=== PATIENT | male | born 1940 | race Caucasian/White ===

== ENCOUNTER 2019-12-04 10:04 | Inpatient (IN) | payer OTHER, MEDICARE ==
--- NOTE | 2019-12-04 11:07 | RAD REPORT ---
EXAM DESCRIPTION: CT - Head Brain Wo Cont - 12/04/2019 10:58 am CLINICAL HISTORY: Confused;Weakness Headache, drowsiness COMPARISON: No comparisons TECHNIQUE: All CT scans are performed using dose optimization technique as appropriate and may inclu de automated exposure control or mA/KV adjustment according to patient size. FINDINGS: No intracranial hemorrhage, hydrocephalus or extra-axial fluid collection.Mild generalized brain atrophy is noted.No areas of brain edema or evidence of midline shift. The paranasal sinuses and mastoids are clear. The calvarium is intact. IMPRESSION: No acute intracranial abnormality.
--- NOTE | 2019-12-04 11:10 | RAD REPORT ---
EXAM DESCRIPTION: RAD - Chest Pa And Lat (2 Views) - 12/04/2019 10:53 am CLINICAL HISTORY: DYSPNEA Chest pain. COMPARISON: No comparisons FINDINGS: Moderate left pleural effusion is seen. Underlying atelectasis or infiltrate is possible. Vague opacity in the right inferior lung may represent additional area of atelectasis or infiltrate. Heart size is enlarged. No displaced fractures.
--- NOTE | 2019-12-04 11:35 | EKG ---
Test Date: 2019-12-04 Test Time: 11:09:44 Animal Humane Agent Supervisor: LYNN MEASUREMENT RESULTS: Intervals: Rate: 98 ID: [id number] QRSD: 90 QT: 320 QTc: 408 [place]: P: 25 ID: [id number] QRS: -7 T: -10 INTERPRETIVE STATEMENTS: Sinus rhythm with 1st degree AV block Low voltage QRS Inferior infarct, age undetermined Abnormal ECG No previous ECG available for comparison Electronically Signed On 12-04-19 11:34:33 CDT by Zana Mcfarland
[2019-12-04 11:36] LABS: Protime INR 1.05
[2019-12-04 11:43] LABS: Absolute Lymphocytes (CBC) 1.5 K/uL (0.7-4.9); Basophils % 0.7 % (0-1.3); Hematocrit 43.2 % (39.6-49.0); Lymphocytes % 14.9 % (15.3-44.8); RBC Red Blood Cell Count 5.07 M/uL (4.33-5.43)
[2019-12-04 11:51] LABS: ALT/SGPT 25 U/L (12-78); AST/SGOT 20 U/L (15-37); Albumin 3.3 g/dL (3.4-5.0); Alkaline Phosphatase 73 U/L (45-117); BUN Blood Urea Nitrogen 21 mg/dL (7-18); Bicarbonate 30 mmol/L (21-32); Bilirubin Direct 0.1 mg/dL (0-0.2); Bilirubin Total 0.4 mg/dL (0.2-1.0); Glucose Level 125 mg/dL (74-106); Magnesium 1.6 mg/dL (1.8-2.4); NT PRO-BNP 53 pg/mL (<450); Potassium 3.7 mmol/L (3.5-5.1); Protein, Total 7.7 g/dL (6.4-8.2); Sodium Level 146 mmol/L (136-145); Troponin (Emerg Dept Use Only) < 0.02 ng/mL (0.0-0.045)
[2019-12-04] MEDS ORDERED: NA CHLORIDE 0.9% 1,000 ML ONE (12:28)
--- NOTE | 2019-12-04 12:33 | RAD REPORT ---
EXAM DESCRIPTION: CT - Chest For Pe Angio - 12/04/2019 12:20 pm CLINICAL HISTORY: Chest pain. DYSPNEA COMPARISON: No comparisons TECHNIQUE: CT angiogram of the pulmonary arteries was performed with MIP. All CT scans are performed using dose optimization technique as appropriate and may include automated exposure control or mA/KV adjustment according to patient size. FINDINGS: No evidence of pulmonary thromboembolism. No acute aortic finding demonstrated. Multiple varying size pulmonary nodules are present bilaterally compatible with metastatic disease. I n the right upper lobe measuring 17 mm (image 48/128, in the left upper lobe anteriorly measuring 13 mm (image 41/128) in the right lower lobe measuring 22 mm (image 69/128). Loculated left pleural effu kerline is seen with areas of irregular pleural nodularity likely metastatic in etiology. Multiple destructive bone lesions are present involving the left scapula with significant destruction and muscle edema measuring 34 x 27 mm. Additional left-sided rib lesions including a large destructi ve left left third rib mass measuring 47 x 17 mm. Aggressive bone lesion with destructive changes inv olving medial right aspect of the clavicle measuring 17 mm. Vertebral body lesion affecting the T12 v ertebral body measuring 24 mm. Numerous small hepatic masses are partially visualize compatible with liver metastasis. IMPRESSION: No evidence of pulmonary thromboembolism. 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
[2019-12-04] MEDS ORDERED: Magnesium Sulfate 2gm IVPB 0 G/0 ML BAG IV ONE (13:24)
[2019-12-04] MEDS ORDERED: MAGNESIUM SULFATE 1 gm IVPB 1 GM/100 ML BAG IV ONE (13:26)
--- NOTE | 2019-12-04 13:29 | ER ---
Nurse's Notes [facility] Name: Pawel Briceno Age: 79 yrs Sex: Male : 1940 Arrival Date: 12/04/2019 Time: 10:08 Bed 14 Private MD: Clint Mao R Diagnosis: Pleural effusion, not elsewhere classified;Dehydration;Hypercalcemia;Advanced intrathoracic malignancy Presentation: 12/03 10:22 Chief complaint: Spouse and/or significant other states: L shoulder pain x 1 year, SOB ph that began 3 days ago, also reports decreased appetite, denies cough or fever. Coronavirus screen: Patient denies a cough. Patient reports shortness of breath or difficulty breathing. Patient denies measured and/or subjective temperature greater than 100.4F prior to today's visit. Patient denies travel on a cruise ship or to a country the [facility] currently lists as an affected area. Patient denies contact with known and/or suspected case of COVID-19. Ebola Screen: No symptoms or risks identified at this time. Initial Sepsis Screen: Does the patient meet any 2 criteria? No. Patient's initial sepsis screen is negative. Does the patient have a suspected source of infection? No. Patient's initial sepsis screen is negative. Risk Assessment: Do you want to hurt yourself or someone else? Patient reports no desire to harm self or others. Onset of symptoms was December 04, 2019. 10:22 Method Of Arrival: Wheelchair ph 10:22 Acuity: EBONY 3 ph Triage Assessment: 15:32 Respiratory: the patient has moderate shortness of breath. Historical: - Allergies: 10:31 No Known Allergies; ph - Home Meds: 10:31 pioglitazone 15 mg oral tab 1 tab once daily [Active]; metformin 500 mg Oral tab 1 tab ph three times a day [Active]; diltiazem HCl 300 mg Oral cpER 1 cap once daily [Active]; lisinopril 10 mg Oral tab 1 tab once daily [Active]; pravastatin 40 mg oral tab 1 tab once daily [Active]; levothyroxine 50 mcg tab 1 tab once daily [Active]; glimepiride 1 mg Oral tab 1 tab twice a day [Active]; donepezil 10 mg oral tab 1 tab once daily [Active]; Fish Oil oral oral [Active]; aspirin 81 mg Oral chew 1 tab once daily [Active]; multivitamin with minerals oral oral [Active]; - PMHx: 10:31 Dementia; Hypertension; Hyperlipidemia; Hypothyroidism; Diabetes - NIDDM; ph - Immunization history:: Adult Immunizations unknown. - Social history:: Smoking status: Patient/guardian denies using tobacco, the patient reports quitting approximately 30 years ago. Screenin:52 Abuse screen: Denies threats or abuse. Nutritional screening: No deficits noted. Tuberculosis screening: No symptoms or risk factors identified. Fall Risk None identified. Assessment: 10:20 General: Appears in no apparent distress. Behavior is calm, cooperative. Pain: Denies pain. Neuro: Level of Consciousness is awake, alert, Oriented to person. Cardiovascular: Heart tones S1 S2 present Capillary refill < 3 seconds Patient's skin is warm and dry. Rhythm is sinus rhythm. Respiratory: Reports shortness of breath at rest Airway is patent Respiratory effort is even, unlabored, Respiratory pattern is regular, symmetrical, 11:20 Reassessment: Patient and/or family updated on plan of care and expected duration. Pain ah level reassessed. Awaiting results. at bedside. No needs voiced at this time. 12:30 Reassessment: NS Bolus hung at this time. No other needs voiced. remains at bedside. 12:59 Reassessment: Cheri GUDINO in room with Pt discussing results. 13:30 Reassessment: Magnesium Sulfte hung at this time. at bedside. No needs voiced at this time. 14:10 Reassessment: Assisted Pt stand at bedside and use urinal and put on a gown. Pt tolerated well. Pt voided 250ml or yellow urine. Explained to Pt awaiting room assignment. 15:08 Reassessment: Report given to TJ on 2nd floor. 15:32 Reassessment: Pt taken up stairs via with tech. Vital Signs: 10:22 BP 117 / 67; Pulse 107; Resp 20; Temp 98.5; Pulse Ox 93% on R/A; Weight 99.79 kg; ph Height 5 ft. 11 in. (180.34 cm); 10:30 BP 128 / 57; Pulse 77; Resp 19; Pulse Ox 92% ; 12:00 BP 128 / 64; Pulse 76; Resp 19; Pulse Ox 92% ; ah 13:30 BP 125 / 71; Pulse 75; Resp 19; Pulse Ox 93% ; ah 14:30 BP 131 / 58; Pulse 74; Resp 22; Pulse Ox 92% ; ah 10:22 Body Mass Index 30.68 (99.79 kg, 180.34 cm) ph ED Course: 10:08 Patient arrived in ED. mr 10:08 Clint Mao MD is Private Physician. mr 10:24 Triage completed. ph 10:29 Cheri Campbell FNP-C [facility]. kb 10:29 Winston Petit MD is Attending Physician. kb 10:52 Chest Pa And Lat (2 Views) XRAY In Process Unspecified. EDMS 10:58 CT Head Brain wo Cont In Process Unspecified. EDMS 11:04 Olya Renee, RN is Primary Nurse. ah 11:21 EKG done, by treatment technician. reviewed by Cheri SOLORIO. at1 12:22 CT Chest For PE Angio In Process Unspecified. EDMS 13:27 Dejon Curry DO is Hospitalizing Provider. kb 14:55 Patient has correct armband on for positive identification. Placed in gown. Bed in low ah position. Call light in reach. Side rails up X2. Adult w/ patient. color television console monitor on. Pulse ox on. NIBP on. 15:30 No provider procedures requiring assistance completed. Patient admitted, IV remains in ah place. Administered Medications: 12:32 Drug: NS 0.9% 1000 ml Route: IV; Rate: 1000 ml; Site: left antecubital; 13:30 Follow up: Response: No adverse reaction; IV Status: Completed infusion; IV Intake: ah 1000ml 13:26 Drug: Magnesium Sulfate 1 grams Route: IVPB; Infused Over: 30 mins; Site: left antecubital; 14:00 Follow up: Response: No adverse reaction; IV Status: Completed infusion ah Intake: 13:30 IV: 1000ml; Total: 1000ml. Outcome: 13:28 Decision to Hospitalize by Provider. kb 15:28 Admitted to Med/surg accompanied by tech, via wheelchair, room 208, with chart, Report ah called to NICHOLE HENRIQUEZ 15:28 Condition: stable 15:28 Instructed on the need for admit. 15:33 Patient left the ED. Signatures: Dispatcher [employer] EDCheri Dietz FNP-C CAPITAL MARKETS SPECIALIST-Ckb Lynda Jones mr Craig, Madhavi, infrastructure security architect EKG Tat1 Aishwarya Reardon, RN RN Olya Hale RN RN
--- NOTE | 2019-12-04 13:30 | EDPHYS ---
Physician Documentation [facility] Name: Pawel Briceno Age: 79 yrs Sex: Male : 1940 Arrival Date: 12/04/2019 Time: 10:08 Bed 14 Private MD: Clint Mao R ED Physician Winston Petit HPI: 12/03 13:23 This 79 yrs old Male presents to ER via Wheelchair with complaints of kb Breathing Difficulty. 13:23 The patient has shortness of breath at rest. Onset: The symptoms/episode began/occurred kb 3 week(s) ago. Duration: The symptoms are continuous. The patient's shortness of breath is aggravated by exertion, is alleviated by nothing. Associated signs and symptoms: Pertinent positives: weakness, fatigue, decreased appetite. Severity of symptoms: At their worst the symptoms were moderate in the emergency department the symptoms are unchanged. The patient has not experienced similar symptoms in the past. The patient has not recently seen a physician. 13:25 reports pt has been short of breath, weak, more tired than normal and hasn't been kb eating much over the last 3 days. States pt has been getting confused on where things go in the house and has been losing things. Pt has history of dementia, but wants to make sure he didn't have a mini stroke, no neuro deficits. Pt A\T\Ox4 at this time. states they are concerned about a clot in the lung due to the shortness of breath. Also reports pt has had pain to left shoulder for over a year. . Historical: - Allergies: 10:31 No Known Allergies; ph - Home Meds: 10:31 pioglitazone 15 mg oral tab 1 tab once daily [Active]; metformin 500 mg Oral tab 1 tab ph three times a day [Active]; diltiazem HCl 300 mg Oral cpER 1 cap once daily [Active]; lisinopril 10 mg Oral tab 1 tab once daily [Active]; pravastatin 40 mg oral tab 1 tab once daily [Active]; levothyroxine 50 mcg tab 1 tab once daily [Active]; glimepiride 1 mg Oral tab 1 tab twice a day [Active]; donepezil 10 mg oral tab 1 tab once daily [Active]; Fish Oil oral oral [Active]; aspirin 81 mg Oral chew 1 tab once daily [Active]; multivitamin with minerals oral oral [Active]; - PMHx: 10:31 Dementia; Hypertension; Hyperlipidemia; Hypothyroidism; Diabetes - NIDDM; ph - Immunization history:: Adult Immunizations unknown. - Social history:: Smoking status: Patient/guardian denies using tobacco, the patient reports quitting approximately 30 years ago. ROS: 12:46 Constitutional: Negative for fever, chills, and weight loss, ENT: Negative for injury, kb pain, and discharge, Neck: Negative for injury, pain, and swelling, Cardiovascular: Negative for chest pain, palpitations, and edema, Back: Negative for injury and pain, MS/Extremity: Negative for injury and deformity, Skin: Negative for injury, rash, and discoloration. 12:46 Respiratory: Positive for shortness of breath, Negative for cough, dyspnea on exertion, hemoptysis, orthopnea, pleurisy, sputum production, wheezing. 12:46 Abdomen/GI: Positive for anorexia. 12:46 Neuro: Positive for confusion. Exam: 12:45 Constitutional: This is a well developed, well nourished patient who is awake, alert, kb and in no acute distress. Head/Face: Normocephalic, atraumatic. ENT: Nares patent. No nasal discharge, no septal abnormalities noted. Tympanic membranes are normal and external auditory canals are clear. Oropharynx with no redness, swelling, or masses, exudates, or evidence of obstruction, uvula midline. Mucous membranes moist. Neck: Trachea midline, no thyromegaly or masses palpated, and no cervical lymphadenopathy. Supple, full range of motion without nuchal rigidity, or vertebral point tenderness. No Meningismus. Chest/axilla: Normal chest wall appearance and motion. Nontender with no deformity. No lesions are appreciated. Cardiovascular: Regular rate and rhythm with a normal S1 and S2. No gallops, murmurs, or rubs. Normal PMI, no JVD. No pulse deficits. Respiratory: Lungs have equal breath sounds bilaterally, clear to auscultation and percussion. No rales, rhonchi or wheezes noted. No increased work of breathing, no retractions or nasal flaring. Abdomen/GI: Soft, non-tender, with normal bowel sounds. No distension or tympany. No guarding or rebound. No evidence of tenderness throughout. Skin: Warm, dry with normal turgor. Normal color with no rashes, no lesions, and no evidence of cellulitis. MS/ Extremity: Pulses equal, no cyanosis. Neurovascular intact. Full, normal range of motion. Neuro: Awake and alert, GCS 15, oriented to person, place, time, and situation. Cranial nerves II-XII grossly intact. Motor strength 5/5 in all extremities. Sensory grossly intact. Cerebellar exam normal. Normal gait. 12:45 ECG was reviewed by the Attending Physician. Vital Signs: 10:22 BP 117 / 67; Pulse 107; Resp 20; Temp 98.5; Pulse Ox 93% on R/A; Weight 99.79 kg; ph Height 5 ft. 11 in. (180.34 cm); 10:30 BP 128 / 57; Pulse 77; Resp 19; Pulse Ox 92% ; ah 12:00 BP 128 / 64; Pulse 76; Resp 19; Pulse Ox 92% ; ah 13:30 BP 125 / 71; Pulse 75; Resp 19; Pulse Ox 93% ; ah 14:30 BP 131 / 58; Pulse 74; Resp 22; Pulse Ox 92% ; ah 10:22 Body Mass Index 30.68 (99.79 kg, 180.34 cm) ph MDM: 10:29 Patient medically screened. kb 12:45 Data reviewed: vital signs, nurses notes. Data interpreted: Pulse oximetry: on room air kb is 93 %. Interpretation: acceptable. 13:21 Counseling: I had a detailed discussion with the patient and/or guardian regarding: the kb historical points, exam findings, and any diagnostic results supporting the discharge/admit diagnosis, lab results, radiology results, the need for further work-up and treatment in the hospital. Physician consultation: Clint Mao MD was contacted at 13:15, regarding admission, patient's condition, Dr Mao is not taking pt's at this time. Asked to admit to the hospitalist. 13:22 Physician consultation: Dejon Curry DO was contacted at 13:20, regarding admission, kb to the telemetry unit. patient's condition, and will see patient in ED, shortly. 12/03 10:36 Order name: Basic Metabolic Panel; Complete Time: 11:55 kb 12/03 10:36 Order name: CBC with Diff; Complete Time: 11:55 kb 12/03 10:36 Order name: LFT's; Complete Time: 11:55 kb 12/03 10:36 Order name: Magnesium; Complete Time: 11:55 kb 12/03 10:36 Order name: NT PRO-BNP; Complete Time: 11:55 kb 12/03 10:36 Order name: PT-INR; Complete Time: 11:39 kb 12/03 10:30 Order name: Chest Pa And Lat (2 Views) XRAY; Complete Time: 11:22 kb 12/03 10:36 Order name: Troponin (emerg Dept Use Only); Complete Time: 11:55 kb 12/03 10:36 Order name: EKG; Complete Time: 10:37 kb 12/03 10:36 Order name: Cardiac monitoring; Complete Time: 11:21 kb 12/03 10:36 Order name: CT Head Brain wo Cont; Complete Time: 11:22 kb 12/03 11:56 Order name: CT Chest For PE Angio; Complete Time: 12:42 kb 12/03 10:36 Order name: EKG - Nurse/Tech; Complete Time: 11:21 kb 12/03 10:36 Order name: IV Saline Lock; Complete Time: 11:21 kb 12/03 10:36 Order name: Labs collected and sent; Complete Time: 11:21 kb 12/03 10:36 Order name: O2 Per Protocol; Complete Time: 11:21 kb 12/03 10:36 Order name: O2 Sat Monitoring; Complete Time: 11:21 kb EC:45 Rate is 98 beats/min. Rhythm is regular. QRS Lynn is Normal. OR interval is prolonged kb at 214 msec. QRS interval is normal at 90 msec. QT interval is normal at 320 msec. Administered Medications: 12:32 Drug: NS 0.9% 1000 ml Route: IV; Rate: 1000 ml; Site: left antecubital; 13:30 Follow up: Response: No adverse reaction; IV Status: Completed infusion; IV Intake: 1000ml 13:26 Drug: Magnesium Sulfate 1 grams Route: IVPB; Infused Over: 30 mins; Site: left antecubital; 14:00 Follow up: Response: No adverse reaction; IV Status: Completed infusion Disposition: 19:09 Co-signature as Attending Physician, Winston Petit MD Available for consultation in ps1 the ED. . Disposition: 12/04/19 13:28 Hospitalization ordered by Dejon Curry for Inpatient Admission. Preliminary diagnosis are Pleural effusion, not elsewhere classified, Dehydration, Hypercalcemia, Advanced intrathoracic malignancy. - Bed requested for Telemetry/MedSurg (Inpatient). - Status is Inpatient Admission. ah - Condition is Stable. - Problem is new. - Symptoms are unchanged. Signatures: Dispatcher [employer] EDMS AdrianGulshanCheri, DENTAL INTERNSHIP-C DENTAL INTERNSHIP-Ckb Sarbjit Karolina Aishwarya Quiroga RN RN Winston Petit MD MD [facility] Olya Renee RN RN Corrections: (The following items were deleted from the chart) 13:30 13:28 Hospitalization Ordered by Dejon Curry DO for Inpatient Admission. Preliminary kb diagnosis is Pleural effusion, not elsewhere classified; Dehydration; Hypercalcemia. Bed requested for Telemetry/MedSurg (Inpatient). Status is Inpatient Admission. Condition is Stable. Problem is new. Symptoms are unchanged. kb 14:47 13:30 12/04/2019 13:28 Hospitalization Ordered by Dejon Curry DO for Inpatient bd Admission. Preliminary diagnosis is Pleural effusion, not elsewhere classified; Dehydration; Hypercalcemia; Advanced intrathoracic malignancy. Bed requested for Telemetry/MedSurg (Inpatient). Status is Inpatient Admission. Condition is Stable. Problem is new. Symptoms are unchanged. kb 15:33 14:47 12/04/2019 13:28 Hospitalization Ordered by Dejon Curry DO for Inpatient ah Admission. Preliminary diagnosis is Pleural effusion, not elsewhere classified; Dehydration; Hypercalcemia; Advanced intrathoracic malignancy. Bed requested for Telemetry/MedSurg (Inpatient). Status is Inpatient Admission. Condition is Stable. Problem is new. Symptoms are unchanged. bd
[2019-12-04 15:49] VITALS: BMI 30.7
--- NOTE | 2019-12-04 15:52 | P.HP ---
Certification for Inpatient Patient admitted to: Observation With expected LOS: <2 Midnights Patient will require the following post-hospital care: None Practitioner: I am a practitioner with admitting privileges, knowledge of patient current condition, hospital course, and medical plan of care. Services: Services provided to patient in accordance with Admission requirements found in Title 42 Section 412.3 of the Code of Federal Regulations Patient History Date of Service: 12/04/19 Primary Care Provider: Dr. Mao; Dr. Drummond-Neurology; Dr. Bruce-Endocrine Reason for admission: Shortness of breath History of Present Illness: 79-year-old male with history of dementia, hypertension, hyperlipidemia, hypothyroidism and diabetes mellitus. Patient reports shortness of breath over the last several days. He also reported decrease appetite and nutrition. Patient denies any fever, chills, or chest pain. Patient reports left shoulder pain but this is been chronic. He denies any nausea, vomiting. Patient came to the ER for further evaluation. In the ER patient evaluated. CBC unremarkable. Sodium 146, potassium 3.7. BUN of 27, creatinine 1.5. GFR 45. Glucose 125. Magnesium 1.6. Troponin unremarkable. CT scan revealed no pulmonary embolism. Multiple varying size pulmonary nodules present bilateral compatible with metastatic disease. Multiple destructive bone lesions involving the left scapula with significant destruction and muscle edema noted as well. Additional left-sided rib lesions including Large destructive left 3rd rib mass noted. Aggressive bone lesion with destructive changes involving the medial right aspect of the clavicle. Vertebral body lesion also noted to the T12 vertebral body. Numerous small hepatic masses compatible with liver metastasis noted. Patient also found to have loculated left pleural effusion with areas of irregular nodularity likely metastatic. Patient was admitted for further evaluation and treatment. When I saw the patient in the ER. Patient appeared stable. 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 Lives at home. He is . - Family History Sister -: Cancer (Uterine cancer) Brother -: Cancer (Pancreatic cancer) - Social History Smoking Status: Former smoker Alcohol use: No CD- Drugs: No Caffeine use: No Place of Residence: Home Review of Systems General: Weakness, Malaise, As per HPI Eyes: Unremarkable ENT: Unremarkable Respiratory: As per HPI Cardiovascular: Unremarkable Gastrointestinal: Unremarkable Genitourinary: Unremarkable Musculoskeletal: Shoulder Pain, As per HPI Integumentary: Unremarkable Neurological: Unremarkable Lymphatics: Unremarkable Physical Examination - Physical Exam General: Alert, In no apparent distress, Oriented x3, Cooperative HEENT: Atraumatic, Normocephalic Neck: Supple Respiratory: Diminished (To the left base) Cardiovascular: Normal pulses, Regular rate/rhythm Gastrointestinal: Normal bowel sounds, Soft and benign, Non-distended, No tenderness, No masses, No rebound, No guarding Musculoskeletal: Other (Left shoulder pain. Rib pain the left side.) Integumentary: No tenderness/swelling, No erythema, No warmth, No cyanosis Neurological: Normal speech, Normal strength at 5/5 x4 extr, Normal tone, Normal affect - Studies Laboratory Data (last 24 hrs) 12/04/19 11:11: PT 12.4, INR 1.05 12/04/19 11:11: WBC 10.2, Hgb 14.1, Hct 43.2, Plt Count 350 12/04/19 11:11: Sodium 146 H, Potassium 3.7, BUN 21 H, Creatinine 1.51 H, Glucose 125 H, Magnesium 1.6 L, Total Bilirubin 0.4, AST 20, ALT 25, Alkaline Phosphatase 73 Assessment and Plan - Plan Impression: Shortness of breath with noted abnormal CT scan showing multiple pulmonary nodules bilateral compatible with metastatic disease and loculated left pleural effusion likely metastatic etiology Multiple destructive bone lesions involving the left scapula, left-sided rib lesions including a large destructive left 3rd rib mass and destructive changes to the right aspect of the clavicle and T12 vertebral body Hepatic masses likely liver metastasis Diabetes mellitus type 2 Hypertension Hyperlipidemia Hypothyroidism Dementia Plan: Shortness of breath with noted abnormal CT scan showing multiple pulmonary nodules bilateral compatible with metastatic disease and loculated left pleural effusion likely metastatic etiology: Patient will be admitted for further hunter luation. Will provide oxygen to maintain sats above 90%. Case discussed with pulmonology. Will plan for ultrasound-guided radiology assisted thoracentesis to further evaluate. This should help with pleural effusion as well. Patient will need further workup for likely stage IV lung cancer with metastasis. This will likely include Pulmonary, Oncology in the near future. Possible discharge tomorrow if well after thoracentesis. Multiple destructive bone lesions involving the left scapula, left-sided rib lesions including a large destructive left 3rd rib mass and destructive changes to the right aspect of the clavicle and T12 vertebral body: This was discussed in detail with the patient. Continue as above. Patient will need oncology evaluation once a diagnosis is made. Hepatic masses likely liver metastasis: Will need oncology evaluation once a diagnosis is made Diabetes mellitus type 2: Will provide Accu-Cheks and continue sliding scale Hypertension: Will need to restart home medication Hyperlipidemia: Restart home medication Hypothyroidism: Restart home medication Dementia: Restart home medication Discharge Plan: Home Plan to discharge in: 24 Hours - Advance Directives Does patient have a Living Will: No Does patient have a Durable POA for Healthcare: No - Code Status/Comfort Care Code Status Assessed: Yes (Patient is full code) Time Spent Managing Pts Care (In Minutes): 55
[2019-12-04] MEDS ORDERED: ACETAMINOPHEN 500 MG TAB PO PRN (15:53)
[2019-12-04] MEDS ORDERED: ONDANSETRON 4 MG/2 ML VIAL IV PRN (15:53)
[2019-12-04] MEDS: INSULIN -REGULAR HUMAN 50 UNIT/0.5 ML ML SQ SCH ×2 (15:58→20:49)
[2019-12-04] MEDS ORDERED: POTASSIUM 25 MEQ EFFERV TAB PO ONE (18:00)
[2019-12-04] MEDS ORDERED: POTASSIUM 25 MEQ EFFERV TAB ONE (18:08)
[2019-12-04] MEDS: DONEPEZIL HCL 5 MG TAB PO SCH (20:49)
[2019-12-04] MEDS: ATORVASTATIN 10 MG TAB PO SCH (20:49)
[2019-12-04] MEDS: HEPARIN 5000 UNIT/ML 1 ML VIAL SQ SCH (20:52)
[2019-12-05 05:36] LABS: Absolute Lymphocytes (CBC) 1.5 K/uL (0.7-4.9); Basophils % 0.7 % (0-1.3); Hematocrit 38.5 % (39.6-49.0); Lymphocytes % 19.7 % (15.3-44.8); MPV 8.8 fL (7.6-11.3); RBC Red Blood Cell Count 4.47 M/uL (4.33-5.43)
[2019-12-05 05:39] LABS: Protime INR 1.1
[2019-12-05 06:01] LABS: Albumin 2.7 g/dL (3.4-5.0); Bilirubin Total 0.4 mg/dL (0.2-1.0); Magnesium 1.6 mg/dL (1.8-2.4); Potassium 3.5 mmol/L (3.5-5.1); Protein, Total 6.4 g/dL (6.4-8.2); Thyroid Stimulating Hormone 3.8 uIU/mL (0.360-3.740)
[2019-12-05] MEDS: LEVOTHYROXINE SOD 0.05 MG TABLET PO SCH (06:20)
[2019-12-05] MEDS: INSULIN -REGULAR HUMAN 50 UNIT/0.5 ML ML SQ SCH ×4 (07:30→21:00)
[2019-12-05] MEDS ORDERED: MAGNESIUM SULFATE 1 gm IVPB 1 GM/100 ML BAG IV ONE (07:30)
[2019-12-05] MEDS: DILTIAZEM HCL 180 MG SR CAP PO SCH (08:28)
[2019-12-05] MEDS: DILTIAZEM HCL 120 MG SR CAP PO SCH (08:28)
[2019-12-05] MEDS: HEPARIN 5000 UNIT/ML 1 ML VIAL SQ SCH ×2 (08:29→20:21)
[2019-12-05] MEDS ORDERED: PAMIDRONATE DISOD 30 MG VIAL IV ONE (08:58)
[2019-12-05] MEDS ORDERED: POTASSIUM CL SA 10 MEQ TAB PO ONE (09:00)
[2019-12-05] MEDS ORDERED: DILTIAZEM HCL 300 MG SR CAP PO SCH (09:00)
--- NOTE | 2019-12-05 09:00 | P.CNS ---
Date of Consult: 12/05/19 Primary Care Provider: Dr. Mao; Dr. Drummond-Neurology; Dr. Bruce-Endocrine Chief Complaint: Pleural effusion possible lung cancer with mets History of Present Illness: Patient is 79 years of age, quit smoking a long time ago started complaining of dyspnea the past 2-3 weeks denies any fever chills chest pain found to have a left-sided pleural effusion diffuse metastatic lung disease presume secondary to lung cancer he has not weighed himself for the past 2 weeks Allergies No Known Allergies Allergy (Unverified 12/04/19 15:37) Home Medications: Donepezil [Aricept] 10 mg PO DAILY 12/04/19 Fish Oil/Dha/Epa [Fish Oil 1,200 mg Fish Oil] 1 tab PO DAILY 12/04/19 Glimepiride [Amaryl] 1 mg PO BID 12/04/19 Levothyroxine [Synthroid] 50 mcg PO [id number] 12/04/19 Lisinopril [Zestril] 10 mg PO DAILY 12/04/19 Metformin ER [Glucophage ER] 500 mg PO TID 12/04/19 Pioglitazone [Actos] 15 mg PO DAILY 12/04/19 Pravastatin Sodium 40 mg PO DAILY 12/04/19 dilTIAZem HCl [Diltiazem ER] 300 mg PO DAILY 12/04/19 - Past Medical/Surgical History Diabetic: Yes -: Diabetes mellitus type 2 -: Hypertension -: Hyperlipidemia -: Hypothyroidism -: Dementia -: Back surgery Psychosocial/ Personal History: 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 He is . - Family History Sister Medical History: Cancer (Uterine cancer) Brother Medical History: Cancer (Pancreatic cancer) - Social History Alcohol use: No CD- Drugs: No Caffeine use: No Place of Residence: Home Review of Systems 10-point ROS is otherwise unremarkable General: Weakness Respiratory: Shortness of Breath Physical Examination Temp Pulse Resp BP Pulse Ox 97.7 F 75 18 131/60 96 12/05/19 04:00 12/05/19 04:00 12/05/19 04:00 12/05/19 04:00 12/05/19 04:00 General: Alert, In no apparent distress, Oriented x3 Neck: Supple Respiratory: Diminished (Diminished air entry on the left side) Cardiovascular: No edema, Regular rate/rhythm, Normal S1 S2 Gastrointestinal: Normal bowel sounds, Soft and benign, Non-distended Musculoskeletal: No clubbing, No swelling Laboratory Data (last 24 hrs) 12/04/19 11:11: PT 12.4, INR 1.05 12/04/19 11:11: WBC 10.2, Hgb 14.1, Hct 43.2, Plt Count 350 12/04/19 11:11: Sodium 146 H, Potassium 3.7, BUN 21 H, Creatinine 1.51 H, Glucose 125 H, Magnesium 1.6 L, Total Bilirubin 0.4, AST 20, ALT 25, Alkaline Phosphatase 73 - Problems (1) Pleural effusion Current Visit: Yes Status: Acute Plan: Patient is 79 years of age admitted with progressive dyspnea significant pleural effusion bilateral lung masses and metastatic disease No evidence of pulmonary thromboembolism. Advanced intrathoracic malignancy is seen with bilateral pulmonary masses, loculated left pleural effusion with pleural nodularity, multiple destructive bone lesions and liver metastatic disease suspected. He is a former smoker prognosis very poor agree with thoracenteses and then discharge follow with me as an outpatient patient is hypercalcemic (2) Hypercalcemia of malignancy Current Visit: Yes Status: Acute Plan: Most likely the patient has hypercalcemia of off metastatic disease start on IV fluids 1 dose of pamidronate vitamine D and PTH levels may also consider hospice care
[2019-12-05] MEDS ORDERED: PAMIDRONATE 60 MG in NA CHLORIDE 0.9% 500 ML IV ONE (09:30)
[2019-12-05] MEDS ORDERED: FUROSEMIDE 40 MG/4 ML VIAL IV ONE (09:44)
[2019-12-05] MEDS ORDERED: NA CHLORIDE 0.9% 1,000 ML IV SCH (10:00)
[2019-12-05 10:02] LABS: Blood Morphology Comment NOT SEEN (NOT SEEN); Platelet Estimate ADEQ
--- NOTE | 2019-12-05 12:18 | P.PN ---
Subjective Date of Service: 12/05/19 Primary Care Provider: Dr. Mao; Dr. Drummond-Neurology; Dr. Bruce-Endocrine Chief Complaint: Pleural effusion possible lung cancer with mets Subjective: Improving Physical Examination - Vital Signs Temperature: 99.4 F Blood Pressure: 132/62 Pulse: 80 Respirations: 20 Pulse Ox (%): 95 - Physical Exam General: Alert HEENT: Atraumatic Neck: Supple Respiratory: Diminished (to the left side) Cardiovascular: Normal pulses, Regular rate/rhythm Gastrointestinal: Normal bowel sounds, Soft and benign, Non-distended Neurological: Normal speech, Normal strength at 5/5 x4 extr, Normal tone - Studies Medications List Reviewed: Yes Assessment & Plan Discharge Plan: Home Plan to discharge in: 24 Hours Physician Review Additional Text: Impression: Shortness of breath with noted abnormal CT scan showing multiple pulmonary nodules bilateral compatible with metastatic disease and loculated left pleural effusion likely metastatic etiology Multiple destructive bone lesions involving the left scapula, left-sided rib lesions including a large destructive left 3rd rib mass and destructive changes to the right aspect of the clavicle and T12 vertebral body Hepatic masses likely liver metastasis Diabetes mellitus type 2 Hypertension Hyperlipidemia Hypothyroidism Dementia Plan: Shortness of breath with noted abnormal CT scan showing multiple pulmonary nodules bilateral compatible with metastatic disease and loculated left pleural effusion likely metastatic etiology: Patient stable at this time. Patient will have thoracentesis today. Case discussed with pulmonology. Patient likely with stage IV lung cancer. This is likely non-small cell lung cancer. Patient will receive medication for hypercalcemia. Anticipate discharge likely home tomorrow with improvement. Case discussed with patient and family including . Multiple destructive bone lesions involving the left scapula, left-sided rib lesions including a large destructive left 3rd rib mass and destructive changes to the right aspect of the clavicle and T12 vertebral body: This was discussed in detail with the patient. Continue as above. Patient will need oncology evaluation once a diagnosis is made. Hepatic masses likely liver metastasis: Will need oncology evaluation once a diagnosis is made Hypercalcemia likely related to above: Continue with medication. Nephrology consulted to help with this. Diabetes mellitus type 2: Will provide Accu-Cheks and continue sliding scale Hypertension: Continue home medication Hyperlipidemia: Continue home medication Hypothyroidism: Continue home medication Dementia: Continue home medication Time Spent Managing Pts Care (In Minutes): 55
[2019-12-05] MEDS: NA CHLORIDE 0.9% 1,000 ML IV SCH ×2 (12:22→15:40)
--- NOTE | 2019-12-05 14:45 | RAD REPORT ---
EXAM DESCRIPTION: US - Thoracentesis w/ US Guide - 12/05/2019 1:51 pm CLINICAL HISTORY: pleural effusion COMPARISON: Chest For Pe Angio dated 12/04/2019 TECHNIQUE: Patient presents for ultrasound-guided thoracentesis. The procedure, risks and alternativ es were discussed with the patient in detail. After answering any questions, oral and written consent were obtained. Time out procedure was performed. PT/ INR studies within normal limits. Patient had n o contraindicated allergy or medication history. Preliminary imaging identified left-side pleural effusion. Access site was selected. The skin was pre pped and draped in the usual sterile fashion. Posterior mid left chest skin and deeper tissues down t o the pleural surface were anesthetized with 1% lidocaine. Under direct sonographic visualization a t horacentesis catheter was advanced into the pleural space. Approximately 10 cc of fluid was retained for laboratory studies. Thoracentesis procedure was continued with approximately 1200 cc of blood-tin ged pleural fluid removed. At the the end of the procedure thoracentesis catheter was withdrawn. Direct pressure was applied to the access site. Sterile bandage was placed on the skin service. Patient was stable throughout the procedure and was transferred back to the floor for continued care. IMPRESSION: Ultrasound-guided left-sided thoracentesis performed as detailed.
--- NOTE | 2019-12-05 14:51 | RAD REPORT ---
EXAM DESCRIPTION: US - Renal Ultrasound-Complete - 12/05/2019 2:35 pm CLINICAL HISTORY: VREONICA Flank pain COMPARISON: Chest For Pe Angio dated 12/04/2019 FINDINGS: Both kidneys are normal in size, shape and echotexture. The right kidney measures 9.9 x 6.8 x 5.2 cm. No hydronephrosis, focal mass or perinephric fluid. The left kidney measures 9.9 x 6.4 x 5.0 cm. No hydronephrosis. Along the lateral aspect of the left kidney a solid mass is present measuring 5.0 x 4.8 cm. The urinary bladder is incompletely distended without gross abnormality seen. IMPRESSION: Solid left renal mass measuring 5 cm likely represents renal cell carcinoma.
--- NOTE | 2019-12-05 15:40 | CON ---
Date of Consultation: 12/05/2019 Reason For Consultation: Elevated BUN and creatinine, hypercalcemia. History Of Present Illness: This is a pleasant 79-year-old gentleman with significant past medical h istory of mild dementia and hypertension. Patient does not have history of any other major medical p roblem. Patient was in his regular state of health, came to the hospital complaining of shortness of breath for the last few days with decreasing of his appetite and complaining of left shoulder pain. Upon arrival to the hospital, found elevation of creatinine 1.5 with GFR of 45. Patient found to mazariegos ve calcium elevated to 12 and has multiple masses on the lung with pleural effusion and multiple bone destruction as metastases. Patient not aware about any lung disease before. Past Medical History: 1.Diabetes. 2.Hypertension. 3.Hyperlipidemia. 4.Dementia. 5.Hypothyroidism. Family History: Positive for hypertension. Social History: Ex-smoker. Denied alcohol. Denied drug abuse. Past Surgical History: Back surgery. Review of Systems: Head and Neck: No red eye. No ear pain. GI: No nausea. No vomiting. : No polyuria. No dysuria. No hematuria. 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 Respiratory: Shortness of breath. Cardiovascular: No chest pain. Endocrine: No polydipsia. Skin: No rash. Neuro: Low back pain. Musculoskeletal: Generalized fatigue. Physical Examination: General: When I saw the patient, patient lying in bed, comfortable. Vital Signs: Blood pressure 132/62, pulse of 80, afebrile. Chest: Clear on the right side, dullness on the left side. No crackles. Heart: S1, S2. Regular. Abdomen: Soft, obese. No organomegaly. Extremities: Trace edema. Laboratory Data: WBC 7.6, H and H 13/38.5, platelets 281. Sodium 148, potassium 3.5, bicarb 31, BUN 17, creatinine 1.1, calcium down to 11.5, magnesium 1.6, albumin 2.7. Corrected calcium is 12.5. V itamin D still pending. PTH is still pending. TSH 3.5. Current Medications: The patient on include atorvastatin, donepezil, Tylenol, IV fluid, levothyroxin e. Assessment And Plan: Acute kidney injury secondary to possible contrast-induced nephropathy/prerenal secondary to calcium diuresis, superimposed with FLORA inhibitor and metformin. 1.I agree with holding lisinopril, holding metformin, and start aggressive hydration. Obstructive u ropathy needs to be ruled out. I am going to go ahead and send for renal ultrasound. 2.Hypercalcemia, mostly secondary to paraneoplastic. I am going to start the patient on hydration w ith Lasix after and we will give the patient alendronate dose today and we will monitor the patient. I am going to send for PTH and vitamin D. 3.Hypertension with presence of acute kidney injury. Patient will hold FLORA inhibitor. 4.Diabetes as by primary. Hold metformin. 5.Lung mass with metastases. We will follow up with Pulmonary. KRISHNA/MICKEY Voice ID: [id number] Report ID: [id number]
--- NOTE | 2019-12-05 15:54 | RAD REPORT ---
EXAM DESCRIPTION: RAD - Chest Single View - 12/05/2019 3:47 pm CLINICAL HISTORY: post thoracentesis Chest pain. COMPARISON: Chest Pa And Lat (2 Views) dated 12/04/2019 FINDINGS: Portable technique limits examination quality. The left-sided pleural effusion is moderately reduced in size since comparative study. No pneumothora x present. The heart is moderately enlarged. IMPRESSION: No postprocedure pneumothorax.
[2019-12-05 17:45] LABS: Body Fluid WBC 275 /mm^3
[2019-12-05 17:51] LABS: Body Fluid Source PLEURAL
[2019-12-05 17:52] LABS: Appearance TURBID (CLEAR); Color of fluid Red (COLORLESS)
[2019-12-05] MEDS: ATORVASTATIN 10 MG TAB PO SCH (20:21)
[2019-12-05] MEDS: DONEPEZIL HCL 5 MG TAB PO SCH (20:21)
[2019-12-06] MEDS: NA CHLORIDE 0.9% 1,000 ML IV SCH ×3 (02:52→11:38)
[2019-12-06 05:41] LABS: Albumin 2.6 g/dL (3.4-5.0); Phosphorus 2.5 mg/dL (2.5-4.9); Potassium 3.2 mmol/L (3.5-5.1); Uric Acid 10.9 mg/dL (3.5-7.2)
[2019-12-06 05:43] LABS: Magnesium 1.4 mg/dL (1.8-2.4)
[2019-12-06] MEDS ORDERED: Magnesium Sulfate 2gm IVPB 2 G/50 ML BAG IV ONE (05:45)
[2019-12-06] MEDS ORDERED: POTASSIUM 25 MEQ EFFERV TAB PO ONE (05:46)
[2019-12-06] MEDS: LEVOTHYROXINE SOD 0.05 MG TABLET PO SCH (06:12)
[2019-12-06] MEDS: INSULIN -REGULAR HUMAN 50 UNIT/0.5 ML ML SQ SCH ×4 (07:30→21:00)
[2019-12-06] MEDS: DILTIAZEM HCL 180 MG SR CAP PO SCH (08:19)
[2019-12-06] MEDS: DILTIAZEM HCL 120 MG SR CAP PO SCH (08:20)
[2019-12-06] MEDS: HEPARIN 5000 UNIT/ML 1 ML VIAL SQ SCH ×2 (08:21→22:23)
--- NOTE | 2019-12-06 09:35 | RAD REPORT ---
EXAM DESCRIPTION: Marla Pa And Lat (2 Views)12/06/2019 9:16 am CLINICAL HISTORY: Thoracentesis COMPARISON: December 04 FINDINGS: No pneumothorax. Opacification of the mid to lower left hemithorax likely a combination of pleural effusion and atelec tasis. Mild patchy bilateral lung opacities. The heart remains enlarged
[2019-12-06] MEDS ORDERED: FUROSEMIDE 40 MG/4 ML VIAL IV ONE (11:40)
[2019-12-06] MEDS ORDERED: MAGNESIUM SULFATE 1 gm IVPB 1 GM/100 ML BAG IV ONE (11:40)
--- NOTE | 2019-12-06 11:59 | P.PN ---
Subjective Date of Service: 12/06/19 Primary Care Provider: Dr. Mao; Dr. Drummond-Neurology; Dr. Bruce-Endocrine Chief Complaint: Pleural effusion possible lung cancer with mets Subjective: Improving (Patient is feeling better no new complaints status post thoracentesis lymphocytic predominant most likely malignant) Review of Systems General: Weakness Respiratory: Shortness of Breath Physical Examination - Vital Signs Temperature: 98.7 F Blood Pressure: 133/63 Pulse: 86 Respirations: 18 Pulse Ox (%): 95 - Physical Exam General: Alert, In no apparent distress, Oriented x3 Respiratory: Clear to auscultation bilaterally Cardiovascular: No edema, Normal S1 S2 - Studies Medications List Reviewed: Yes Assessment & Plan - Problems (Diagnosis) (1) Pleural effusion Current Visit: Yes Status: Acute Plan: Status post thoracentesis cytology pending (2) Hypercalcemia of malignancy Current Visit: Yes Status: Acute Plan: Hypercalcemia improving status post pamidronate IV 1 dose (3) Renal mass Current Visit: Yes Status: Acute Plan: Patient has a solid mass in the left kidney most likely has renal cancer with metastatic disease according to Oncology is best to biopsies metastatic lesion in the lung which is on the right side
[2019-12-06] MEDS ORDERED: NA CHLORIDE 0.9% 500 ML IV ONE (12:18)
[2019-12-06 13:49] LABS: Magnesium 2.2 mg/dL (1.8-2.4); Potassium 3.5 mmol/L (3.5-5.1)
[2019-12-06] MEDS ORDERED: POTASSIUM CL SA 10 MEQ TAB PO ONE (15:00)
--- NOTE | 2019-12-06 15:42 | P.DS ---
Admission Date: 12/05/19 Discharge Date: 12/06/19 Primary Care Provider: Dr. Mao; Dr. Drummond-Neurology; Dr. Bruce-Endocrine Disposition: ROUTINE DISCHARGE Discharge Condition: GOOD Reason for Admission: Pleural effusion possible lung cancer with mets Consultations: Pulmonary-Dr. Toussaint Nephrology-Dr. Lovelace Procedures: CT head: FINDINGS: No intracranial hemorrhage, hydrocephalus or extra-axial fluid collection.Mild generalized brain atrophy is noted.No areas of brain edema or evidence of midline shift. The paranasal sinuses and mastoids are clear. The calvarium is intact. IMPRESSION: No acute intracranial abnormality. CT chest: FINDINGS: No evidence of pulmonary thromboembolism. No acute aortic finding demonstrated. Multiple varying size pulmonary nodules are present bilaterally compatible with metastatic disease. In the right upper lobe measuring 17 mm (image 48/128, in the left upper lobe anteriorly measuring 13 mm (image 41/128) in the right lower lobe measuring 22 mm (image 69/128). Loculated left pleural effusion is seen with areas of irregular pleural nodularity likely metastatic in etiology. Multiple destructive bone lesions are present involving the left scapula with significant destruction and muscle edema measuring 34 x 27 mm. Additional left- sided rib lesions including a large destructive left left third rib mass measuring 47 x 17 mm. Aggressive bone lesion with destructive changes involving medial right aspect of the clavicle measuring 17 mm. Vertebral body lesion affecting the T12 vertebral body measuring 24 mm. Numerous small hepatic masses are partially visualize compatible with liver metastasis. IMPRESSION: No evidence of pulmonary thromboembolism. Advanced intrathoracic malignancy is seen with bilateral pulmonary masses, loculated left pleural effusion with pleural nodularity, multiple destructive bone lesions and liver metastatic disease suspected. Renal US: FINDINGS: Both kidneys are normal in size, shape and echotexture. The right kidney measures 9.9 x 6.8 x 5.2 cm. No hydronephrosis, focal mass or perinephric fluid. The left kidney measures 9.9 x 6.4 x 5.0 cm. No hydronephrosis. Along the lateral aspect of the left kidney a solid mass is present measuring 5.0 x 4.8 cm. The urinary bladder is incompletely distended without gross abnormality seen. IMPRESSION: Solid left renal mass measuring 5 cm likely represents renal cell carcinoma. Thorancentesis: . Thoracentesis procedure was continued with approximately 1200 cc of blood- tinged pleural fluid removed. Medical problem list: Shortness of breath with noted abnormal CT scan showing multiple pulmonary nodules bilateral compatible with metastatic disease and loculated left pleural effusion likely metastatic etiology status post thorancentesis suspect underlying stage IV renal cell carcinoma Multiple destructive bone lesions involving the left scapula, left-sided rib lesions including a large destructive left 3rd rib mass and destructive changes to the right aspect of the clavicle and T12 vertebral body Solid left renal mass 5 cm in size likely renal cell carcinoma Acute renal injury likely related to medication 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 Patient reports shortness of breath over the last several days. He also reported decrease appetite and nutrition. Patient denies any fever, chills, or chest pain. Patient reports left shoulder pain but this is been chronic. He denies any nausea, vomiting. Patient came to the ER for further evaluation. In the ER patient evaluated. CBC unremarkable. Sodium 146, potassium 3.7. BUN of 27, creatinine 1.5. GFR 45. Glucose 125. Magnesium 1.6. Troponin unremarkable. CT scan revealed no pulmonary embolism. Multiple varying size pulmonary nodules present bilateral compatible with metastatic disease. Multiple destructive bone lesions involving the left scapula with significant destruction and muscle edema noted as well. Additional left-sided rib lesions including Large destructive left 3rd rib mass noted. Aggressive bone lesion with destructive changes involving the medial right aspect of the clavicle. Vertebral body lesion also noted to the T12 vertebral body. Numerous small hepatic masses compatible with liver metastasis noted. Patient also found to have loculated left pleural effusion with areas of irregular nodularity likely metastatic. Patient was admitted for further evaluation and treatment. When I saw the patient in the ER. Patient appeared stable. No significant shortness of breath noted Hospital Course: Patient presented with shortness of breath. Patient found to have multiple abnormal findings on CT scan. This included multiple pulmonary nodules bilaterally compatible with metastatic disease, loculated left pleural effusion, multiple destructive bony lesions involving the left scapula, left-sided rib, clavicle, and T12 vertebral body. Renal ultrasound done showed solid left renal mass 5 cm in size. Liver showed multiple masses suspicious for metastasis. The patient also had acute renal injury with hypercalcemia. Pulmonology and neph rology were consulted. During the course of his stay patient required thoracentesis with improvement in his shortness of breath. Patient also received medication for hypercalcemia with improvement. At discharge patient without significant shortness of breath. Patient stable at this time. At discharge patient will follow up with pulmonology to further monitor and address. At discharge spoke with family as the patient has underlying dementia, family plans to send patient to [facility] for further evaluation and workup. Patient likely has underlying stage IV renal cell carcinoma. I will discuss with PCP on plan of care. Patient evaluated for home oxygen. Patient qualifies for home oxygen. This will be arranged. Will also recommend follow up with nephrology as an outpatient to further monitor. Patient with underlying diabetes mellitus type 2 Patient with hypertension. Patient with hyperlipidemia. Patient with hypothyroidism. Patient with dementia. Vital Signs/Physical Exam: Temp Pulse Resp BP Pulse Ox 99.0 F 85 18 123/58 L 94 12/06/19 12:00 12/06/19 12:09 12/06/19 12:00 12/06/19 12:09 12/06/19 12:00 Laboratory Data at Discharge: WBC 7.6 K/uL (4.3-10.9) D 12/05/19 05:18 Hgb 13.0 g/dL (13.6-17.9) L 12/05/19 05:18 Hct 38.5 % (39.6-49.0) L 12/05/19 05:18 Plt Count 281 K/uL (152-406) 12/05/19 05:18 PT 12.9 SECONDS (9.5-12.5) H 12/05/19 05:18 INR 1.10 12/05/19 05:18 APTT 29.3 SECONDS (24.3-36.9) 12/05/19 05:18 Sodium 145 mmol/L (136-145) 12/06/19 04:21 Potassium 3.5 mmol/L (3.5-5.1) 12/06/19 13:15 BUN 16 mg/dL (7-18) 12/06/19 04:21 Creatinine 0.96 mg/dL (0.55-1.3) 12/06/19 04:21 Glucose 127 mg/dL (74-106) H 12/06/19 04:21 Uric Acid 10.9 mg/dL (3.5-7.2) H 12/06/19 04:21 Phosphorus 2.5 mg/dL (2.5-4.9) 12/06/19 04:21 Magnesium 2.2 mg/dL (1.8-2.4) D 12/06/19 13:15 Total Bilirubin 0.4 mg/dL (0.2-1.0) 12/05/19 05:18 AST 22 U/L (15-37) 12/05/19 05:18 ALT 22 U/L (12-78) 12/05/19 05:18 Alkaline Phosphatase 62 U/L (45-117) 12/05/19 05:18 Triglycerides 220 mg/dL (<150) H 12/05/19 05:18 Cholesterol 134 mg/dL (<200) 12/05/19 05:18 HDL Cholesterol 32 mg/dL (40-60) L 12/05/19 05:18 Cholesterol/HDL Ratio 4.19 12/05/19 05:18 Home Medications: Donepezil [Aricept] 10 mg PO DAILY 12/04/19 Fish Oil/Dha/Epa [Fish Oil 1,200 mg Fish Oil] 1 tab PO DAILY 12/04/19 Glimepiride [Amaryl] 1 mg PO BID 12/04/19 Levothyroxine [Synthroid] 50 mcg PO [id number] 12/04/19 Lisinopril [Zestril] 10 mg PO DAILY 12/04/19 Metformin ER [Glucophage ER] 500 mg PO TID 12/04/19 Pioglitazone [Actos] 15 mg PO DAILY 12/04/19 Pravastatin Sodium 40 mg PO DAILY 12/04/19 dilTIAZem HCl [Diltiazem ER] 300 mg PO DAILY 12/04/19
--- NOTE | 2019-12-06 16:04 | P.PN ---
Subjective Date of Service: 12/06/19 Primary Care Provider: Dr. Mao; Dr. Drummond-Neurology; Dr. Bruce-Endocrine Chief Complaint: Pleural effusion possible lung cancer with mets Subjective: Doing well Physical Examination - Vital Signs Temperature: 99.0 F Blood Pressure: 123/58 Pulse: 85 Respirations: 18 Pulse Ox (%): 94 - Physical Exam General: Alert, Cooperative HEENT: Atraumatic Neck: Supple Respiratory: Crackles/rales Cardiovascular: Normal pulses, Regular rate/rhythm Gastrointestinal: Normal bowel sounds, Soft and benign, Non-distended, No masses, No rebound, No guarding - Studies Microbiology Data (last 24 hrs): 12/05/19 13:00 Body Fluid - Thoracenteses Gram Stain - Final Medications List Reviewed: Yes Assessment & Plan Discharge Plan: Home Plan to discharge in: 24 Hours Physician Review Additional Text: Impression: Shortness of breath with noted abnormal CT scan showing multiple pulmonary nodules bilateral compatible with metastatic disease and loculated left pleural effusion likely metastatic etiology Multiple destructive bone lesions involving the left scapula, left-sided rib lesions including a large destructive left 3rd rib mass and destructive changes to the right aspect of the clavicle and T12 vertebral body Hepatic masses likely liver metastasis Solid renal mass left side 5 cm likely renal cell carcinoma Acute renal injury likely related to medication Hypercalcemia likely para neoplastic Diabetes mellitus type 2 Hypertension Hyperlipidemia Hypothyroidism Dementia Plan: Shortness of breath with noted abnormal CT scan showing multiple pulmonary nodules bilateral compatible with metastatic disease and loculated left pleural effusion likely metastatic likely stage IV renal cell carcinoma Patient stable at this time. Patient has done well after thoracentesis. Case discussed with pulmonology. Patient likely with underlying stage IV renal cell carcinoma. Family desires further workup to be done at [facility]. Patient still with hypercalcemia. Will hold discharge until this has significantly improved. Case discussed with nephrology. Patient will get Sensipar and prednisone today. Multiple destructive bone lesions involving the left scapula, left-sided rib lesions including a large destructive left 3rd rib mass and destructive changes to the right aspect of the clavicle and T12 vertebral body: This was discussed in detail with the patient. Continue as above. Patient will need oncology evaluation once a diagnosis is made. Solid renal mass left side 5 cm likely renal cell carcinoma: Likely stage IV renal cell carcinoma Acute renal injury likely related to medication: Nephrology continues to adjust. Continue to hold metformin and lisinopril Hypercalcemia likely para neoplastic Hepatic masses likely liver metastasis: Nephrology continues to adjust medication. Case discussed with nephrology as recheck calcium 12.1. Patient will get Sensipar and prednisone. Diabetes mellitus type 2: Will provide Accu-Cheks and continue sliding scale Hypertension: Continue home medication Hyperlipidemia: Continue home medication Hypothyroidism: Continue home medication Dementia: Continue home medication Time Spent Managing Pts Care (In Minutes): 55
[2019-12-06] MEDS ORDERED: NA CHLORIDE 0.9% 1,000 ML IV SCH (16:05)
[2019-12-06] MEDS: NACHLORIDE 0.45% 1,000 ML IV SCH (16:58)
[2019-12-06] MEDS ORDERED: predniSONE 20 MG TAB PO ONE (17:00)
[2019-12-06] MEDS: CINACALCET HCL 30 MG TAB PO SCH (17:08)
--- NOTE | 2019-12-06 19:11 | PN ---
Date of Progress Note: 12/06/2019 Subjective: Patient was admitted with shortness of breath, pleural effusion, hypercalcemia, found to have lung mass with bone metastases. Patient for his hypercalcemia received alendronate, hydration with Lasix. Yesterday, calcium dropped from over 12 to 10.5. His uric acid is still elevated. Physical Examination: Vital Signs: When I saw the patient, blood pressure 123/58, pulse of 85. General: Patient had good urine output of 500. Chest: Decreased entry on the left base. Heart: S1, S2. Regular. Abdomen: Soft, nontender. Extremities: Trace edema. Laboratory Data: WBC 7.6, H and H 13/38.5, platelets 281. Sodium 145, potassium 3.2, bicarb 28, BUN 16, creatinine 0.9, uric acid 10.5, calcium 10.9, phosphorus 2.5, magnesium 1.4. PTH less than 6. Medications: Current medications the patient on include diltiazem, atorvastatin, donepezil, levothyr oxine, insulin. Assessment And Plan: 1.Acute kidney injury secondary to prerenal, recovered, resolved. 2.Hypercalcemia secondary to paraneoplastic with appropriate suppression of the PTH, trending down. I am going to bolus the patient again and give him Lasix after. If calcium below 10, patient is goi ng to be okay to be discharged to follow up in the office in 2-3 weeks. 3.Lung mass. Patient is going to follow up with [facility]. 4.Hypokalemia. We will supplement. PRINCESS Voice ID: [id number] Report ID: [id number]
[2019-12-06] MEDS: DONEPEZIL HCL 5 MG TAB PO SCH (22:23)
[2019-12-06] MEDS: ATORVASTATIN 10 MG TAB PO SCH (22:23)
[2019-12-07] MEDS: NACHLORIDE 0.45% 1,000 ML IV SCH (04:50)
[2019-12-07] MEDS: LEVOTHYROXINE SOD 0.05 MG TABLET PO SCH (05:35)
[2019-12-07 06:25] LABS: Albumin 2.5 g/dL (3.4-5.0); Magnesium 1.6 mg/dL (1.8-2.4); Phosphorus 3.4 mg/dL (2.5-4.9); Potassium 3.7 mmol/L (3.5-5.1)
[2019-12-07] MEDS: INSULIN -REGULAR HUMAN 50 UNIT/0.5 ML ML SQ SCH ×2 (07:30→11:17)
[2019-12-07] MEDS: DILTIAZEM HCL 180 MG SR CAP PO SCH (08:01)
[2019-12-07] MEDS: CINACALCET HCL 30 MG TAB PO SCH (08:02)
[2019-12-07] MEDS: DILTIAZEM HCL 120 MG SR CAP PO SCH (08:02)
[2019-12-07] MEDS: HEPARIN 5000 UNIT/ML 1 ML VIAL SQ SCH (08:04)
[2019-12-07] MEDS ORDERED: MAGNESIUM SULFATE 1 gm IVPB 1 GM/100 ML BAG IV ONE (09:00)
[2019-12-07] MEDS ORDERED: POTASSIUM CL SA 10 MEQ TAB PO ONE (09:00)
--- NOTE | 2019-12-07 11:09 | P.DS ---
Admission Date: 12/05/19 Discharge Date: 12/07/19 Primary Care Provider: Dr. Mao; Dr. Drummond-Neurology; Dr. Bruce-Endocrine Disposition: ROUTINE DISCHARGE Discharge Condition: GOOD Reason for Admission: Pleural effusion possible lung cancer with mets Consultations: Pulmonology-Dr. Ibarra Nephrology-Dr. Lovelace Procedures: CT chest: FINDINGS: No evidence of pulmonary thromboembolism. No acute aortic finding demonstrated. Multiple varying size pulmonary nodules are present bilaterally compatible with metastatic disease. In the right upper lobe measuring 17 mm (image 48/128, in the left upper lobe anteriorly measuring 13 mm (image 41/128) in the right lower lobe measuring 22 mm (image 69/128). Loculated left pleural effusion is seen with areas of irregular pleural nodularity likely metastatic in etiology. Multiple destructive bone lesions are present involving the left scapula with significant destruction and muscle edema measuring 34 x 27 mm. Additional left- sided rib lesions including a large destructive left left third rib mass measuring 47 x 17 mm. Aggressive bone lesion with destructive changes involving medial right aspect of the clavicle measuring 17 mm. Vertebral body lesion affecting the T12 vertebral body measuring 24 mm. Numerous small hepatic masses are partially visualize compatible with liver metastasis. IMPRESSION: No evidence of pulmonary thromboembolism. Advanced intrathoracic malignancy is seen with bilateral pulmonary masses, loculated left pleural effusion with pleural nodularity, multiple destructive b one lesions and liver metastatic disease suspected. Renal ultrasound: COMPARISON: Chest For Pe Angio dated 12/04/2019 FINDINGS: Both kidneys are normal in size, shape and echotexture. The right kidney measures 9.9 x 6.8 x 5.2 cm. No hydronephrosis, focal mass or perinephric fluid. The left kidney measures 9.9 x 6.4 x 5.0 cm. No hydronephrosis. Along the lateral aspect of the left kidney a solid mass is present measuring 5.0 x 4.8 cm. The urinary bladder is incompletely distended without gross abnormality seen. IMPRESSION: Solid left renal mass measuring 5 cm likely represents renal cell carcinoma. CT head: FINDINGS: No intracranial hemorrhage, hydrocephalus or extra-axial fluid collection.Mild generalized brain atrophy is noted.No areas of brain edema or evidence of midline shift. The paranasal sinuses and mastoids are clear. The calvarium is intact. IMPRESSION: No acute intracranial abnormality. Paracentesis: 1200 mL blood tinged fluid removed Medical problem list: Shortness of breath secondary to left loculated pleural effusion status post paracentesis with removal of 2500 mL of fluid complicated with abnormal CT scan showing multiple pulmonary nodules bilateral compatible with metastatic disease, multiple destructive bone lesions involving the left scapula with left-sided rib lesions including a large destructive left 3rd rib mass and destructive changes to the right aspect of the clavicle, T12 vertebral body and multiple hepatic masses likely liver metastasis suspect stage IV renal cell carcinoma Solid renal mass left side 5 cm likely stage IV renal cell carcinoma Acute renal injury likely related to medication 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 Patient found to have significant abnormalities on CT scan. Significant left loculated pleural effusion and likely underlying cancer with metastasis to multiple areas noted. Patient admitted for further evaluation and treatment. Hospital Course: Patient presented with Shortness of breath secondary to left loculated pleural effusion complicated with abnormal CT scan showing multiple pulmonary nodules bilateral compatible with metastatic disease, multiple destructive bone lesions involving the left scapula with left-sided rib lesions including a large de structive left 3rd rib mass and destructive changes to the right aspect of the clavicle, T12 vertebral body and multiple hepatic masses. Renal ultrasound further noted a 5 cm left solid renal mass. This was all suspicious for stage IV renal cell carcinoma. Patient was seen and evaluated by pulmonology and Nephrology. 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 Patient was given IV fluids. Medications-lisinopril, metformin and lactose were discontinued. During the course of his stay patient had a thoracentesis. 1200 cc of fluid removed. Patient has done well. At discharge he is without significant shortness of breath. He did qualify for home oxygen. Case further discuss with pulmonology and nephrology. Case also discuss with his family as the patient has mild dementia. Family plans to take the patient to [facility] for further evaluation and possible treatment. This was discussed in detail. At discharge he will continue with home oxygen to maintain sats above 93%. Records of CT scan, renal ultrasound and discharge summary will be provided so that he can establish care at [facility]. Recommend follow up with pulmonology in 1-2 weeks to follow up this hospitalization. Recommend recheck chest x-ray in 2-4 weeks to monitor resolution. Plan of care discussed with his PCP. His PCP will help arrange referral to [facility]. As mentioned above patient with acute renal injury likely from medication- lisinopril and metformin. Both have been discontinued. 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 Patient was given medication with improvement. At discharge calcium level within normal range and renal function back to baseline. At discharge will recommend patient to follow up with nephrology in 1-2 weeks to follow up this hospitalization. Recommend to recheck lab-BMP in 1 week to monitors progress. Recommend no further use of nonsteroidal anti-inflammatories. Recommend no further use of lisinopril and metformin. Future medications may need to be renally dosed. Patient with diabetes mellitus type 2. Hemoglobin A1c well controlled at 6.2. As mentioned above. Metformin has been discontinued along with Actos. Will recommend to continue with glimepiride 1 mg 1 pill twice daily. Recommend to maintain blood sugars less 140 fasting and less than 200 after meals. Further adjustment in medication may be required. May need to hold glimepiride if blood sugar consistently below 90. Further adjustment in medication can be done by his PCP. Patient with hyperlipidemia. At discharge he may continue with pravastatin 40 mg daily and fish oil pill daily. Patient with hypertension. This has been well controlled off lisinopril. Valerie ent continued with diltiazem. At discharge lisinopril has been discontinued. Patient will continue with diltiazem ER 300 mg daily. Recommended maintain blood pressure less 150/80. Further adjustment can be done by his PCP. Patient with hypothyroidism. At discharge patient will continue with levothyroxine 50 mcg daily. Patient with dementia. At discharge he will continue with Aricept 10 mg daily. Vital Signs/Physical Exam: Temp Pulse Resp BP Pulse Ox 97.4 F 72 18 118/59 L 94 12/07/19 08:00 12/07/19 08:02 12/07/19 08:00 12/07/19 08:02 12/07/19 08:00 General: Alert, In no apparent distress, Cooperative HEENT: Atraumatic Neck: Supple Respiratory: Clear to auscultation bilaterally, Normal air movement Cardiovascular: Normal pulses, Regular rate/rhythm Gastrointestinal: Normal bowel sounds, Soft and benign, Non-distended, No tenderness, No masses, No rebound Musculoskeletal: No erythema, No tenderness, No warmth Integumentary: No tenderness/swelling, No erythema, No warmth, No cyanosis Neurological: Normal speech, Normal strength at 5/5 x4 extr, Normal tone, Normal affect Laboratory Data at Discharge: WBC 7.6 K/uL (4.3-10.9) D 12/05/19 05:18 Hgb 13.0 g/dL (13.6-17.9) L 12/05/19 05:18 Hct 38.5 % (39.6-49.0) L 12/05/19 05:18 Plt Count 281 K/uL (152-406) 12/05/19 05:18 PT 12.9 SECONDS (9.5-12.5) H 12/05/19 05:18 INR 1.10 12/05/19 05:18 APTT 29.3 SECONDS (24.3-36.9) 12/05/19 05:18 Sodium 142 mmol/L (136-145) 12/07/19 05:02 Potassium 3.7 mmol/L (3.5-5.1) 12/07/19 05:02 BUN 22 mg/dL (7-18) H 12/07/19 05:02 Creatinine 1.11 mg/dL (0.55-1.3) 12/07/19 05:02 Glucose 183 mg/dL (74-106) H 12/07/19 05:02 Uric Acid 10.9 mg/dL (3.5-7.2) H 12/06/19 04:21 Phosphorus 3.4 mg/dL (2.5-4.9) 12/07/19 05:02 Magnesium 1.6 mg/dL (1.8-2.4) L D 12/07/19 05:02 Total Bilirubin 0.4 mg/dL (0.2-1.0) 12/05/19 05:18 AST 22 U/L (15-37) 12/05/19 05:18 ALT 22 U/L (12-78) 12/05/19 05:18 Alkaline Phosphatase 62 U/L (45-117) 12/05/19 05:18 Triglycerides 220 mg/dL (<150) H 12/05/19 05:18 Cholesterol 134 mg/dL (<200) 12/05/19 05:18 HDL Cholesterol 32 mg/dL (40-60) L 12/05/19 05:18 Cholesterol/HDL Ratio 4.19 12/05/19 05:18 Home Medications: Donepezil [Aricept*] 10 mg PO DAILY 12/04/19 Fish Oil/Dha/Epa [Fish Oil 1,200 mg Fish Oil] 1 tab PO DAILY 12/04/19 Glimepiride [Amaryl] 1 mg PO BID 12/04/19 Levothyroxine [Synthroid*] 50 mcg PO [id number] 12/04/19 Pravastatin Sodium 40 mg PO DAILY 12/04/19 dilTIAZem HCl [Diltiazem 24Hr ER (LA)] 300 mg PO DAILY 12/04/19 Patient Discharge Instructions: 1. Recommend follow up with PCP in 1 week to follow up this hospitalization. 2. Patient presented with Shortness of breath secondary to left loculated pleural effusion complicated with abnormal CT scan showing multiple pulmonary nodules bilateral compatible with metastatic disease, multiple destructive bone lesions involving the left scapula with left-sided rib lesions including a large destructive left 3rd rib mass and destructive changes to the right aspect of the clavicle, T12 vertebral body and multiple hepatic masses. Renal ultrasound further noted a 5 cm left solid renal mass. This was all suspicious for stage IV renal cell carcinoma. Patient was seen and evaluated by pulmonology and Nephrology. 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 Patient was given IV fluids. Medications-lisinopril, metformin and lactose were discontinued. During the course of his stay patient had a thoracentesis. 1200 cc of fluid removed. Patient has done well. At discharge he is without significant shortness of breath. He did qualify for home oxygen. Case further discuss with pulmonology and nephrology. Case also discuss with his family as the patient has mild dementia. Family plans to take the patient to [facility] for further evaluation and possible treatment. This was discussed in detail. At discharge he will continue with home oxygen to maintain sats above 93%. Records of CT scan, renal ultrasound and discharge summary will be provided so that he can establish care at [facility]. Recommend follow up with pulmonology in 1-2 weeks to follow up this hospitalization. Recommend recheck chest x-ray in 2-4 weeks to monitor resolution. Plan of care discussed with his PCP. His PCP will help arrange referral to [facility]. 3. As mentioned above patient with acute renal injury likely from medication-l isinopril and metformin. Both have been discontinued. 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 Patient was given medication with improvement. At discharge calcium level within normal range and renal function back to baseline. At discharge will recommend patient to follow up with nephrology in 1-2 weeks to follow up this hospitalization. Recommend to recheck lab-BMP in 1 week to monitors progress. Recommend no further use of nonsteroidal anti-inflammatories. Recommend no further use of lisinopril and metformin. Future medications may need to be renally dosed. 4. Patient with diabetes mellitus type 2. Hemoglobin A1c well controlled at 6.2. As mentioned above. Metformin has been discontinued along with Actos. Will recommend to continue with glimepiride 1 mg 1 pill twice daily. Recommend to maintain blood sugars less 140 fasting and less than 200 after meals. Further adjustment in medication may be required. May need to hold glimepiride if blood sugar consistently below 90. Further adjustment in medication can be done by his PCP. 5. Patient with hyperlipidemia. At discharge he may continue with pravastatin 40 mg daily and fish oil pill daily. 6. Patient with hypertension. This has been well controlled off lisinopril. Patient continued with diltiazem. At discharge lisinopril has been discontinued. Patient will continue with d iltiazem ER 300 mg daily. Recommended maintain blood pressure less 150/80. Further adjustment can be done by his PCP. 7. Patient with hypothyroidism. At discharge patient will continue with levothyroxine 50 mcg daily. 8. Patient with dementia. At discharge he will continue with Aricept 10 mg daily. Diet: ADA Activity: Fall precautions Time spent managing pt's care (in minutes): 55
[2019-12-07 11:20] VITALS: O2SAT 94
[2019-12-07 12:04] VITALS: BP 131/62; TEMP 97.8
[2019-12-10 12:51] LABS: Vitamin D 1,25-Dihydroxy Total 24 pg/mL (18-72); Vitamin D,1,25-OH2, D2 <8 pg/mL
[2019-12-11 13:19] LABS: Vitamin D 1,25-Dihydroxy Total 21 pg/mL (18-72); Vitamin D,1,25-OH2, D2 <8 pg/mL
== END 2019-12-07 13:29 | disposition home or self-care (01) | DRG 181 ==
LOC: ER 10:04 → ERHOLD 14:30 → 2ND 15:09 → OBSVTOIN 12-05 17:08
PROVIDERS: ADMIT Family Medicine; ATTEND Family Medicine
PROC: 0W9B3ZZ Drainage of Left Pleural Cavity, Percutaneous Approach (ICD-10-PCS; principal; 2019-12-06)
DX: C34.92 Malignant neoplasm of unspecified part of left bronchus or lung (principal); N17.9 Acute kidney failure, unspecified; C78.7 Secondary malignant neoplasm of liver and intrahepatic bile duct; J91.0 Malignant pleural effusion; C79.00 Secondary malignant neoplasm of unspecified kidney and renal pelvis; C34.91 Malignant neoplasm of unspecified part of right bronchus or lung; I10 Essential (primary) hypertension; E78.5 Hyperlipidemia, unspecified; M25.512 Pain in left shoulder; F03.90 Unspecified dementia, unspecified severity, without behavioral disturbance, psychotic disturbance, mood disturbance, and anxiety; E03.9 Hypothyroidism, unspecified; M89.9 Disorder of bone, unspecified; E11.21 Type 2 diabetes mellitus with diabetic nephropathy; E83.52 Hypercalcemia; N14.1 Nephropathy induced by other drugs, medicaments and biological substances; R91.8 Other nonspecific abnormal finding of lung field; T50.8X5A Adverse effect of diagnostic agents, initial encounter; Z79.84 Long term (current) use of oral hypoglycemic drugs; Z79.890 Hormone replacement therapy; Z79.899 Other long term (current) drug therapy; Z87.891 Personal history of nicotine dependence
CPT/HCPCS: 32555; 36415; 70450; 71045; 71046; 71275; 76770; 80048; 80053; 80061; 80069; 80076; 82310; 82652; 82947; 83036; 83735; 83880; 83970; 84132; 84439; 84443; 84484; 84550; 85025; 85610; 85730; 87015; 87070; 87116; 87206; 89050; 93005; 96361; 96365; 99285; G0378; J1644; J1940; J2430; J3475; J7030; J7040; J7512; Q9967